=== PATIENT | male | born 1935 | race Caucasian/White ===

== ENCOUNTER 2019-09-28 05:38 | Inpatient (IN) | payer MEDICARE, OTHER ==
[2019-09-22 13:07] LABS: BASOPHILS % (AUTO) 0.7 % (0-1); EOSINOPHILS # (AUTO) 0.1 X10'3 (0-0.9); EOSINOPHILS % (AUTO) 1.4 % (0-6); LYMPHOCYTES # (AUTO) 1.1 X10'3 (1.1-4.8); LYMPHOCYTES % (AUTO) 21.3 % (21-51); MEAN CORPUSCULAR HEMOGLOBIN 32.1 PG (27.0-31.0); MEAN CORPUSCULAR HGB CONC 32.5 g/dL (33.0-36.5); MEAN CORPUSCULAR VOLUME 98.7 FL (78-98); MEAN PLATELET VOLUME 7.9 FL (7.4-10.4); MONOCYTES # (AUTO) 0.6 X10'3 (0-0.9); MONOCYTES % (AUTO) 10.7 % (2-12); NEUTROPHILS # (AUTO) 3.4 X10'3 (1.8-7.7); NEUTROPHILS % (AUTO) 65.9 % (42-75); PRE OP HEMATOCRIT 44.1 % (42.0-52.0); PRE OP HEMOGLOBIN 14.3 g/dL (14.0-17.9); PRE OP PLATELET COUNT 154 X10'3 (140-440); RED BLOOD COUNT 4.46 X10'6 (4.70-6.10); RED CELL DISTRIBUTION WIDTH 14.7 % (11.5-14.5)
[2019-09-22 13:28] LABS: ALBUMIN 3.8 G/DL (3.4-5.0); ALBUMIN/GLOBULIN RATIO 1.1 (1.1-1.5); ALKALINE PHOSPHATASE 91 IU/L (46-116); BLOOD UREA NITROGEN 17 MG/DL (7-18); BUN/CREATININE RATIO 21.5 (5.4-32.0); CALCIUM 8.9 MG/DL (8.5-10.1); CHLORIDE 103 MMOL/L (99-107); CREATININE 0.79 MG/DL (0.60-1.10); PRE OP ALT 30 U/L (30-65); PRE OP ANION GAP 8 (8-16); PRE OP AST 29 U/L (10-37); PRE OP BILIRUB, TOTAL 0.7 MG/DL (0.0-1.0); PRE OP GLUCOSE 98 MG/DL (70-104); PRE OP POTASSIUM 4.1 MMOL/L (3.4-5.1); PRE OP SODIUM 137 MMOL/L (135-145); TOTAL CARBON DIOXIDE 25.8 MMOL/L (24-32); TOTAL PROTEIN 7.4 G/DL (6.4-8.2); eGFR > 90 ML/MIN
[~2019-09-28] VITALS: Ht 165.1 cm; Wt 86.7 kg
[2019-09-28] VITALS (18 sets, daily range): BP systolic 89–166; BP diastolic 44–85
[2019-09-28] MEDS: metoclopramide 5 mg/ml inj IV ONE ×2 (05:30→06:19)
[~2019-09-28 05:38] MED LIST: ASPI-845 PO; ATOR10TA87 PO; CARV-50 PO; CLOP75TA35 PO; DOCUMENT DATE & TIME OF BETA-BLOCKER PO ONE; DONE10TA11 PO; FERR-119 PO; MEGA RED PO; MULT-1179 PO; NIAC500C12 PO; OMEG-143 PO; VITA-268 PO; VITA400C67 PO; acetaminophen 325mg tablet PO ONE; ceFAZolin 2gm in dextrose, iso 50 ML IV ONE; celeCOXIB 100mg capsule PO ONE; famotidine 20mg tablet PO ONE; gabapentin 300mg capsule PO ONE; oxyCODONE SR 10mg (sust. release) tab -2 tabs (20mg) PO ONE; ringers solution, lacted 1,000 ML IV SCH; tranexamic acid inj. 1,000 MG in normal saline 100 ML IV ONE; vancomycin 1,500 MG in NS 500ml IV soln IV ONE
[2019-09-28] MEDS ORDERED: LIDOcaine 1% (10mg/ml) 2ml vial ONE (06:03)
[2019-09-28] MEDS ORDERED: carvedilol 6.25mg tablet PO ONE (06:50)
[2019-09-28] MEDS ORDERED: bisacodyl 10mg suppository rectal RC PRN (07:15)
[2019-09-28] MEDS ORDERED: acetaminophen 325mg tablet PO PRN (07:15)
[2019-09-28] MEDS ORDERED: ondansetron/PF 4mg/2ml inj IV PRN ×2 (07:15→09:25)
[2019-09-28] MEDS ORDERED: HYDROmorphone inj. 0.5 MG/0.5 ML DISP.SYRIN IV PRN (07:15)
[2019-09-28] MEDS ORDERED: diphenhydrAMINE 25mg capsule PO PRN ×2 (07:15)
[2019-09-28] MEDS ORDERED: magnesium hydroxide 30ml (MOM) UD suspension PO PRN (07:15)
[2019-09-28] MEDS ORDERED: cloNIDine hcl/PF 100mcg/ml inj ONE ×2 (07:46→07:56)
[2019-09-28] MEDS ORDERED: epiNEPHrine 1 mg/ml inj ONE (07:46)
[2019-09-28] MEDS ORDERED: ROPIVAcaine 0.5% (5mg/ml) 30ml vial ONE ×3 (07:47→09:58)
[2019-09-28] MEDS ORDERED: vancomycin 1,000mg inj ONE ×2 (07:56→09:09)
[2019-09-28] MEDS ORDERED: ketorolac trometh. 30mg/ml inj. ONE (07:56)
[2019-09-28] MEDS ORDERED: midazolam 2 mg/2 ml injection ONE ×2 (08:06)
[2019-09-28] MEDS ORDERED: fentaNYL/PF 50MCG/1 ML 2ML syringe ONE (08:06)
[2019-09-28] MEDS ORDERED: ePHEDrine 50MG/ML INJ. ONE (08:34)
[2019-09-28] MEDS ORDERED: ringers solution, lacted 1,000 ML IV SCH (09:24)
[2019-09-28] MEDS ORDERED: meperidine/PF 25mg/ml syringe IV PRN ×3 (09:25)
[2019-09-28] MEDS ORDERED: morphine 4 MG/ML inj SYRINge IV PRN (09:25)
[2019-09-28] MEDS ORDERED: morphine 2 MG/ML inj. syringe IV PRN (09:25)
[2019-09-28] MEDS ORDERED: proCHLORperazine 10 MG/2 ml inj IV PRN (09:25)
--- NOTE | 2019-09-28 10:20 | NUR ---
Received from OR via BED , accompanied by Anesthesiologist DR BYNUM and report given by Anesthesiolgist. PATIENT WAKING UP, DENIES PAIN, V/S WNL, NEUROVASCULAR CHECKS INTACT, 18G PIV LUE , EDWAR DRESSING TO LEFT KNEE CDI W/ COLD POWDER PACK AND ON QUE PUMP AT 4ML/HR , SENSATIONS AT T12
--- NOTE | 2019-09-28 11:10 | NUR ---
PATIENT A&OX4, DENIES PAIN, V/S WNL, NEUROVASCULAR CHECKS INTACT, 18G PIV LUE , EDWAR DRESSING TO LEFT KNEE CDI W/ COLD POWDER PACK AND W/ SCD ON. . SENSATION T-12. PATIENT TAKEN TO 4022B WITH ALL BELONGINGS AND HOOKED UP TO MONITORS IN ROOM AND REPORT GIVEN TO MANAGER RN WHO HAS TAKEN OVER PATIENT CARE.
[2019-09-28] MEDS: ROPIVAcaine 0.2%/PF PUMP/bolus 550 ML ADDCANAL SCH (11:26)
--- NOTE | 2019-09-28 12:00 | NUR ---
vic dressing not working, Aida Tiwari was advised, she told me to reinforce it and watch it and hopefully it will start working but if not may change tomorrow.scant amt of drainage showing through dressing. I reinforced dressing still not working, will continue to monitor.
[2019-09-28] MEDS ORDERED: NORMAL SALINE IV ONE (13:30)
[2019-09-28] MEDS ORDERED: TRANEXAMIC ACID IV ONE (13:30)
[2019-09-28] MEDS ORDERED: HYDROmorphone 1 mg/ml syringe IV PRN (14:00)
[2019-09-28] MEDS ORDERED: CEFEPIME 2gm in D5W 50mL 50 ML IV SCH (16:00)
[2019-09-28] MEDS: potassium cl 20mEq in 1/2 NS 1,000 ML IV SCH (16:41)
[2019-09-28] MEDS: ceFAZolin 2gm in dextrose, iso 50 ML IV SCH (16:41)
[2019-09-28] MEDS: oxyCODONE/APAP 5-325mg tablet PO PRN (16:50)
--- NOTE | 2019-09-28 18:32 | NUR ---
Problems reprioritized. Patient report given, questions answered & plan of care reviewed with MELBA Felix.
[2019-09-28] MEDS ORDERED: VANCOMYCIN 1,500MG inj. 1,500 MG in normal saline 500ml IV soln 500 ML IV SCH (20:00)
[2019-09-28] MEDS: sennosides 8.6mg tablet PO SCH (20:47)
[2019-09-28] MEDS: gabapentin 300mg capsule PO SCH (20:47)
[2019-09-28] MEDS: carvedilol 6.25mg tablet PO SCH (20:48)
[2019-09-28] MEDS: ARIPIPRAZOLE 10 MG TABLET PO SCH (20:48)
[2019-09-28] MEDS: ascorbic acid 500mg tablet PO SCH (20:48)
[2019-09-28] MEDS: atorvastatin 10mg tablet PO SCH (20:48)
[2019-09-29 02:00] VITALS: BP 140/71
[2019-09-29] MEDS: ceFAZolin 2gm in dextrose, iso 50 ML IV SCH (02:06)
[2019-09-29] MEDS: potassium cl 20mEq in 1/2 NS 1,000 ML IV SCH ×2 (02:09→11:20)
[2019-09-29] MEDS: ROPIVAcaine 0.2% (10 MG/5 ML) BOLUS INJECTION ADDCANAL PRN ×2 (03:35→21:28)
[2019-09-29] MEDS: ROPIVAcaine 0.2%/PF PUMP/bolus 550 ML ADDCANAL SCH (03:36)
--- NOTE | 2019-09-29 03:37 | NUR ---
at this time the ropivicaine pump was increased to 14ml/hr and one bolus was administered by patient. will continue to monitor for pain control and will decrease if needed.
[2019-09-29] MEDS: oxyCODONE/APAP 5-325mg tablet PO PRN ×3 (04:42→13:32)
[2019-09-29 06:30] VITALS: BP 159/63
--- NOTE | 2019-09-29 06:44 | NUR ---
REPORT GIVEN TO MELBA LAUREANO.
[2019-09-29 06:46] LABS: ANION GAP 8 (8-16); CHLORIDE 104 MMOL/L (99-107); POTASSIUM 4.1 MMOL/L (3.5-5.1); SODIUM 137 MMOL/L (135-145); TOTAL CARBON DIOXIDE 25.1 MMOL/L (24-32)
[2019-09-29 06:53] LABS: BASOPHILS % (AUTO) 0.3 % (0-1); EOSINOPHILS % (AUTO) 0.3 % (0-6); HEMATOCRIT 40.5 % (42.0-52.0); HEMOGLOBIN 13.2 g/dl (14.0-17.9); LYMPHOCYTES # (AUTO) 0.6 X10'3 (1.1-4.8); MEAN CORPUSCULAR HEMOGLOBIN 32.2 PG (27.0-31.0); MEAN CORPUSCULAR HGB CONC 32.5 g/dL (33.0-36.5); MEAN CORPUSCULAR VOLUME 99.1 FL (78-98); MEAN PLATELET VOLUME 7.8 FL (7.4-10.4); MONOCYTES # (AUTO) 0.6 X10'3 (0-0.9); MONOCYTES % (AUTO) 8.5 % (2-12); NEUTROPHILS # (AUTO) 5.8 X10'3 (1.8-7.7); NEUTROPHILS % (AUTO) 82.9 % (42-75); PLATELET COUNT 135 X10'3 (140-440); RED BLOOD COUNT 4.08 X10'6 (4.70-6.10); RED CELL DISTRIBUTION WIDTH 14.7 % (11.5-14.5)
--- NOTE | 2019-09-29 06:55 | NUR ---
Patient in room ORTHO 4022B. I have received report from Elvira REILLY and had the opportunity to ask questions and assume patient care.
--- NOTE | 2019-09-29 08:08 | NUR ---
Problems reprioritized. Patient report given, questions answered & plan of care reviewed with Scarlett REILLY.
--- NOTE | 2019-09-29 08:11 | NUR ---
Patient in room ORTHO 4022. I have received report from Kenyatta REILLY and had the opportunity to ask questions and assume patient care.
[2019-09-29] MEDS: ascorbic acid 500mg tablet PO SCH ×2 (08:24→21:27)
[2019-09-29] MEDS: gabapentin 300mg capsule PO SCH ×3 (08:24→21:27)
[2019-09-29] MEDS: aspirin 325mg tablet PO SCH ×2 (08:24→11:39)
[2019-09-29] MEDS: multivitamins, therapeutics tablet PO SCH (08:24)
[2019-09-29] MEDS: carvedilol 6.25mg tablet PO SCH ×2 (08:25→21:27)
[2019-09-29] MEDS: clopidogrel 75mg tablet PO SCH (08:25)
[2019-09-29] MEDS: ARIPIPRAZOLE 10 MG TABLET PO SCH ×2 (08:25→21:27)
[2019-09-29 10:00] VITALS: BP 134/69
--- NOTE | 2019-09-29 12:40 | NUR ---
Joint replacement consult: Pt seen by SARITA for written/verbal high protein ed w/ RD contact information provided. Unable to wake pt at this time; written ed left at bedside. Addendum: 09/29/19 at [address] Amended: Links added.
[2019-09-29 14:00] VITALS: BP 152/84
[2019-09-29 18:00] VITALS: BP 160/82
--- NOTE | 2019-09-29 18:15 | NUR ---
RECEIVED REPORT FROM CHRISTAL REILLY AND ASSUMED PATIENT CARE
--- NOTE | 2019-09-29 18:15 | NUR ---
Problems reprioritized. Patient report given, questions answered & plan of care reviewed with Adilene REILLY.
[2019-09-29] MEDS: sennosides 8.6mg tablet PO SCH (21:27)
[2019-09-29] MEDS: atorvastatin 10mg tablet PO SCH (21:27)
[2019-09-30] MEDS: potassium cl 20mEq in 1/2 NS 1,000 ML IV SCH ×2 (05:00→18:00)
--- NOTE | 2019-09-30 06:03 | NUR ---
REPORT GIVEN TO CHRISTAL REILLY
[2019-09-30 06:10] VITALS: BP 160/79
[2019-09-30 06:52] LABS: BASOPHILS % (AUTO) 0.2 % (0-1); EOSINOPHILS % (AUTO) 0.2 % (0-6); HEMATOCRIT 39.3 % (42.0-52.0); LYMPHOCYTES # (AUTO) 0.6 X10'3 (1.1-4.8); LYMPHOCYTES % (AUTO) 7.2 % (21-51); MEAN CORPUSCULAR HEMOGLOBIN 32.4 PG (27.0-31.0); MEAN CORPUSCULAR VOLUME 98.4 FL (78-98); MEAN PLATELET VOLUME 7.6 FL (7.4-10.4); MONOCYTES % (AUTO) 11.6 % (2-12); NEUTROPHILS # (AUTO) 6.8 X10'3 (1.8-7.7); NEUTROPHILS % (AUTO) 80.8 % (42-75); PLATELET COUNT 132 X10'3 (140-440); RED CELL DISTRIBUTION WIDTH 15.3 % (11.5-14.5); WHITE BLOOD COUNT 8.4 X10'3 (4.5-11.0)
[2019-09-30] MEDS: oxyCODONE/APAP 5-325mg tablet PO PRN ×2 (06:55→11:25)
[2019-09-30] MEDS: carvedilol 6.25mg tablet PO SCH ×2 (07:59→20:26)
[2019-09-30] MEDS: ARIPIPRAZOLE 10 MG TABLET PO SCH ×2 (08:00→20:26)
[2019-09-30] MEDS: multivitamins, therapeutics tablet PO SCH (08:00)
[2019-09-30] MEDS: gabapentin 300mg capsule PO SCH ×3 (08:00→20:26)
[2019-09-30] MEDS: clopidogrel 75mg tablet PO SCH (08:00)
[2019-09-30] MEDS: ascorbic acid 500mg tablet PO SCH ×2 (08:00→20:26)
[2019-09-30] MEDS ORDERED: ONQPUMP ADDCANAL (09:24)
[2019-09-30] MEDS: ROPIVAcaine 0.2%/PF PUMP/bolus 550 ML ADDCANAL SCH (09:25)
[2019-09-30 10:00] VITALS: BP 150/76
[2019-09-30] MEDS ORDERED: ipratropium/albuterol 3ml nebule NEB PRN (11:50)
[2019-09-30] MEDS: ROPIVAcaine 0.2% (10 MG/5 ML) BOLUS INJECTION ADDCANAL PRN (11:50)
--- NOTE | 2019-09-30 14:39 | NUR ---
Problems reprioritized. Patient report given, questions answered & plan of care reviewed with Celia REILLY.
[2019-09-30 18:00] VITALS: BP 137/75
--- NOTE | 2019-09-30 18:28 | NUR ---
Problems reprioritized. Patient report given, questions answered & plan of care reviewed with Natalia REILLY.
--- NOTE | 2019-09-30 18:33 | NUR ---
Patient in room ORTHO 4022. I have received report from Ludivina REILLY and had the opportunity to ask questions and assume patient care.
[2019-09-30] MEDS: atorvastatin 10mg tablet PO SCH (20:26)
[2019-09-30] MEDS: sennosides 8.6mg tablet PO SCH (20:26)
[2019-09-30 22:00] VITALS: BP 152/78
--- NOTE | 2019-10-01 02:05 | NUR ---
Drainage amount has grown on dressing. Joshua dressing showing green light and no air leaks. Francisco new line on dressing to monitor drainage and placed a medium knee wrap and fresh powder pack. Gatched patients bed, will continue to monitor.
--- NOTE | 2019-10-01 04:51 | NUR ---
No new drainage on vic dressing, will continue to monitor.
[2019-10-01] MEDS: oxyCODONE/APAP 5-325mg tablet PO PRN (04:54)
[2019-10-01 06:00] VITALS: BP 142/73
--- NOTE | 2019-10-01 06:29 | NUR ---
Problems reprioritized. Patient report given, questions answered & plan of care reviewed with Ludivina REILLY.
[2019-10-01 07:08] LABS: BASOPHILS % (AUTO) 0.5 % (0-1); EOSINOPHILS % (AUTO) 0.4 % (0-6); HEMATOCRIT 37.4 % (42.0-52.0); HEMOGLOBIN 12.4 g/dl (14.0-17.9); LYMPHOCYTES # (AUTO) 0.7 X10'3 (1.1-4.8); LYMPHOCYTES % (AUTO) 9.2 % (21-51); MEAN CORPUSCULAR HGB CONC 33.3 g/dL (33.0-36.5); MEAN PLATELET VOLUME 7.6 FL (7.4-10.4); MONOCYTES % (AUTO) 13.1 % (2-12); NEUTROPHILS # (AUTO) 5.9 X10'3 (1.8-7.7); NEUTROPHILS % (AUTO) 76.8 % (42-75); PLATELET COUNT 123 X10'3 (140-440); RED BLOOD COUNT 3.78 X10'6 (4.70-6.10); RED CELL DISTRIBUTION WIDTH 14.7 % (11.5-14.5); WHITE BLOOD COUNT 7.7 X10'3 (4.5-11.0)
[2019-10-01] MEDS: gabapentin 300mg capsule PO SCH ×3 (08:12→19:58)
[2019-10-01] MEDS: ARIPIPRAZOLE 10 MG TABLET PO SCH ×2 (08:12→19:58)
[2019-10-01] MEDS: multivitamins, therapeutics tablet PO SCH (08:12)
[2019-10-01] MEDS: clopidogrel 75mg tablet PO SCH (08:12)
[2019-10-01] MEDS: carvedilol 6.25mg tablet PO SCH ×2 (08:12→20:01)
[2019-10-01] MEDS: ascorbic acid 500mg tablet PO SCH ×2 (08:12→19:58)
--- NOTE | 2019-10-01 09:17 | NUR ---
Problems reprioritized. Patient report given, questions answered & plan of care reviewed with Scarlett REILLY.
--- NOTE | 2019-10-01 09:28 | NUR ---
Patient in room ORTHO 4022. I have received report from Ludivina REILLY and had the opportunity to ask questions and assume patient care.
--- NOTE | 2019-10-01 09:47 | NUR ---
I have reviewed and I agree with assessments documented by Ludivina REILLY
[2019-10-01 10:00] VITALS: BP 131/63
--- NOTE | 2019-10-01 10:02 | NUR ---
I left Message with OR nurse who answered Dr. Ronquillo phone about physical therapy recommending and extra day here and nurse helping with transfers, waiting for call back.
[2019-10-01 14:00] VITALS: BP 144/46
[2019-10-01] MEDS: ROPIVAcaine 0.2%/PF PUMP/bolus 550 ML ADDCANAL SCH (16:31)
[2019-10-01 18:00] VITALS: BP 128/67
--- NOTE | 2019-10-01 18:27 | NUR ---
Problems reprioritized. Patient report given, questions answered & plan of care reviewed with Rani REILLY.
--- NOTE | 2019-10-01 18:30 | NUR ---
Patient in room ORTHO 4022. I have received report from MELBA Pantoja and had the opportunity to ask questions and assume patient care.
[2019-10-01] MEDS: sennosides 8.6mg tablet PO SCH (19:58)
[2019-10-01] MEDS: atorvastatin 10mg tablet PO SCH (19:58)
[2019-10-01 22:00] VITALS: BP 143/74
[2019-10-02 06:00] VITALS: BP 172/82
--- NOTE | 2019-10-02 06:30 | NUR ---
Patient in room ORTHO 4022. I have received report from Rani and had the opportunity to ask questions and assume patient care.
--- NOTE | 2019-10-02 06:31 | NUR ---
Problems reprioritized. Patient report given, questions answered & plan of care reviewed with MELBA Inman.
[2019-10-02] MEDS: clopidogrel 75mg tablet PO SCH (08:15)
[2019-10-02] MEDS: ascorbic acid 500mg tablet PO SCH (08:15)
[2019-10-02] MEDS: gabapentin 300mg capsule PO SCH (08:15)
[2019-10-02] MEDS: carvedilol 6.25mg tablet PO SCH (08:15)
[2019-10-02] MEDS: ARIPIPRAZOLE 10 MG TABLET PO SCH (08:15)
[2019-10-02] MEDS: multivitamins, therapeutics tablet PO SCH (08:15)
--- NOTE | 2019-10-02 09:43 | NUR ---
Reviewed discharge instructions with pt. Pt verbalized understanding. Pt was able to dress himself, is alert, oriented and wishes to go home. Pt was wheeled downstairs to be driven home by his spouse. All of pt's belonging were returned to pt.
--- NOTE | 2019-10-06 13:52 | NUR ---
Case Management DC follow up: spoke to pt spouse, Amanda, via telephone. S/P: [facility] Reports: "it has been interesting" r/t question about how pt is doing. Denies: acute cp, SOB, resp distress, vertigo, syncope,weakness, blurry vision, N/V, NELSON, emergent general pain, abd tenderness/distension, fever. Verbalizes understanding of s/s that warrant 9-11/ER visit for evaluation. Pt spouse relayed that pt fell out of vehicle when arriving home after DC from hospital 10/02/19. Pt was hallucinating, confused. pt spouse called Dr Ronquillo, stated did not seem, too concerned. Pt also stated pt pain medications have not been ordered w/their pharmacy. Told they would try. Still no pain Rx to date 10/06/19. Pt spouse states, pt has not had further hallucinations. but, needs reminding to rest/elevate leg. Pt does not stay down w/leg up to allow ice pack to prove beneficial. Pt had first PT appt Friday10/04/19, but does not do exercises in between. Pt spouse states he is compliant w/hydrating. L knee is red, warm, swollen 3x size of R knee. Pt advised to call Dr Ronquillo office at this time and PCP as well for referral for [facility], pain Rx if Dr Ronquillo office is not able to follow through. Pt agrees if swelling, redness, temp continues to elevate, rtn to ER. Verbalizes understanding of new Rx asa 325mg once daily for 6 weeks and why prescribed, resumes current Rx/taking as ordered, no ase r/t polypharmacy. Acknowledges need to schedule/keep follow up appts w/ PCP/Dr Yg Gardner 10/11/19. Needs met, questions answered at DC, no further questions at this time.
== END 2019-10-02 09:40 | disposition home or self-care (01) | DRG 470 ==
LOC: PAS 05:38 → ORTHO 4S 07:14 → OBSVTOIN 09-29 12:30
PROVIDERS: ADMIT Orthopaedic Surgery; ATTEND Orthopaedic Surgery
PROC: 3E0T3BZ Introduction of Anesthetic Agent into Peripheral Nerves and Plexi, Percutaneous Approach (ICD-10-PCS; 2019-09-28)
PROC: 0SRD069 Replacement of Left Knee Joint with Oxidized Zirconium on Polyethylene Synthetic Substitute, Cemented, Open Approach (ICD-10-PCS; principal; 2019-09-28 08:04)
DX: M17.12 Unilateral primary osteoarthritis, left knee (principal); D62 Acute posthemorrhagic anemia; I25.10 Atherosclerotic heart disease of native coronary artery without angina pectoris; E78.5 Hyperlipidemia, unspecified; K21.9 Gastro-esophageal reflux disease without esophagitis; I10 Essential (primary) hypertension; Z95.1 Presence of aortocoronary bypass graft; Z87.891 Personal history of nicotine dependence; Z95.5 Presence of coronary angioplasty implant and graft; I25.2 Old myocardial infarction
CPT/HCPCS: 36415; 71046; 73560; 80051; 80053; 82948; 85025; 86885; 86900; 86901; 87081; 93005; 94640; 94760; 97110; 97116; 97162; 97530; A4215; A6449; A6454; A7000; C1713; C1776; G0378; J0171; J0735; J1885; J2001; J2250; J2405; J2765; J2795; J3010; J3370; J3480; J7040; J7120

== ENCOUNTER 2024-02-17 05:03 | Emergency (ER) | payer MEDICARE, OTHER ==
[~2024-02-17] VITALS: Ht 165.1 cm; Wt 106.8 kg
[~2024-02-17 05:03] MED LIST changes: -ATOR10TA87 PO; -CLOP75TA35 PO; -DOCUMENT DATE & TIME OF BETA-BLOCKER PO ONE; -FERR-119 PO; -MEGA RED PO; -MULT-1179 PO; -NIAC500C12 PO; -OMEG-143 PO; -VITA-268 PO; -VITA400C67 PO; -acetaminophen 325mg tablet PO ONE; -ceFAZolin 2gm in dextrose, iso 50 ML IV ONE; -celeCOXIB 100mg capsule PO ONE; -famotidine 20mg tablet PO ONE; -gabapentin 300mg capsule PO ONE; -oxyCODONE SR 10mg (sust. release) tab -2 tabs (20mg) PO ONE; -ringers solution, lacted 1,000 ML IV SCH; -tranexamic acid inj. 1,000 MG in normal saline 100 ML IV ONE; -vancomycin 1,500 MG in NS 500ml IV soln IV ONE
[2024-02-17 05:20] VITALS: BP 160/85; PULSE 61; RESP 13; TEMP 97.6; O2SAT 95
[2024-02-17] MEDS: ibuprofen 200mg tablet PO ONE (05:37)
[2024-02-17] MEDS: acetaminophen 325mg tablet PO ONE (05:37)
== END 2024-02-17 05:49 | disposition home or self-care (01) ==
LOC: ER 05:04
DX: S40.011A Contusion of right shoulder, initial encounter (principal); F03.90 Unspecified dementia, unspecified severity, without behavioral disturbance, psychotic disturbance, mood disturbance, and anxiety; I25.10 Atherosclerotic heart disease of native coronary artery without angina pectoris; I50.9 Heart failure, unspecified; Z79.82 Long term (current) use of aspirin; Z79.899 Other long term (current) drug therapy; Z95.1 Presence of aortocoronary bypass graft; W06.XXXA Fall from bed, initial encounter; Y93.89 Activity, other specified; Y92.89 Other specified places as the place of occurrence of the external cause; Y99.8 Other external cause status
CPT/HCPCS: 73030; 93005; 99284

== ENCOUNTER 2024-06-23 08:45 | Inpatient (IN) | payer OTHER, MEDICARE ==
[~2024-06-23] VITALS: Ht 165.1 cm; Wt 97.6 kg
[2024-06-23 08:00] VITALS: BP 115/67; PULSE 65; RESP 22; TEMP 97.7; O2SAT 93
[2024-06-23 09:48] LABS: BASOPHILS # (AUTO) 0.1 X10'3 (0-0.2); BASOPHILS % (AUTO) 0.4 % (0-1); EOSINOPHILS # (AUTO) 0.1 X10'3 (0-0.9); EOSINOPHILS % (AUTO) 0.6 % (0-6); HEMOGLOBIN 11.3 g/dl (14.0-17.9); LYMPHOCYTES # (AUTO) 0.7 X10'3 (1.1-4.8); MEAN CORPUSCULAR HEMOGLOBIN 29.5 PG (27.0-31.0); MEAN CORPUSCULAR HGB CONC 32.2 g/dL (33.0-36.5); MEAN CORPUSCULAR VOLUME 91.7 FL (78-98); MEAN PLATELET VOLUME 7.9 FL (7.4-10.4); MONOCYTES # (AUTO) 0.7 X10'3 (0-0.9); MONOCYTES % (AUTO) 5.6 % (2-12); NEUTROPHILS # (AUTO) 11.5 X10'3 (1.8-7.7); NEUTROPHILS % (AUTO) 88.4 % (42-75); PLATELET COUNT 257 X10'3 (140-440); RED BLOOD COUNT 3.81 X10'6 (4.70-6.10)
[2024-06-23 10:12] LABS: ALANINE AMINOTRANSFERASE 33 U/L (12-78); ALBUMIN 2.1 G/DL (3.4-5.0); ALBUMIN/GLOBULIN RATIO 0.5 (1.1-1.5); ALKALINE PHOSPHATASE 98 IU/L (46-116); ANION GAP 7 (8-16); ASPARTATE AMINO TRANSFERASE 37 U/L (10-37); BILIRUBIN,TOTAL 0.4 MG/DL (0.1-1.0); BLOOD UREA NITROGEN 15 MG/DL (7-18); C-REACTIVE PROTEIN 7.38 MG/DL (0.0-0.5); CALCIUM 8.5 MG/DL (8.5-10.1); CHLORIDE 105 MMOL/L (99-107); CREATININE 0.75 MG/DL (0.60-1.10); GLUCOSE 110 MG/DL (70-104); POTASSIUM 3.3 MMOL/L (3.5-5.1); PRO BRAIN NATRIURETIC PEPTIDE 4774 PG/ML (0-450); SODIUM 138 MMOL/L (135-145); TOTAL CARBON DIOXIDE 25.6 MMOL/L (24-32); TOTAL PROTEIN 6.4 G/DL (6.4-8.2); eCRCL 58 ML/MIN; eGFR > 90 ML/MIN
[2024-06-23 11:23] LABS: BILIRUBIN,URINE NEGATIVE (Neg); CLARITY,URINE CLEAR (Clear); COLOR,URINE YELLOW (Yellow); GLUCOSE, URINE NEGATIVE (Neg); KETONES,URINE NEGATIVE (Neg); LEUKOCYTE ESTERASE ,URINE NEGATIVE (Neg); NITRITES, URINE NEGATIVE (Neg); OCCULT BLOOD,URINE NEGATIVE (Neg); PROTEIN,URINE 30 mg/dl (Neg); UROBILINOGEN,URINE 0.2 E.U/dL (0.2-1.0)
[2024-06-23 11:36] LABS: UA COLLECTION TYPE VOIDED
[2024-06-23 11:44] LABS: RBC,URINE 0-2 /HPF (0-2); WBC,URINE 0-4 /HPF (0-4)
[2024-06-23 11:45] LABS: BACTERIA,URINE FEW /HPF (Neg); CAL OXALATE CRYSTALS 1+ /HPF (NEGATIVE); FINE GRANULAR CAST 0-3 /LPF (NEGATIVE); HYALINE CASTS 0-3 /LPF (NEGATIVE); SQUAMOUS EPITHELIAL CELL,UR FEW /LPF (FEW)
[2024-06-23] MEDS: furosemide 40mg/4ml inj IV ONE (14:10)
[2024-06-23] MEDS ORDERED: ondansetron/PF 4mg/2ml inj IV PRN (15:00)
[2024-06-23] MEDS ORDERED: mag hydrox/Alum hydrox/simeth 30ml oral suspension PO PRN (15:00)
[2024-06-23] MEDS ORDERED: acetaminophen 325mg tablet PO PRN (15:00)
[2024-06-23] MEDS ORDERED: potassium Cl 20 mEq SR tablet PO PRN (15:00)
[2024-06-23] MEDS ORDERED: potassium Cl 40MEQ/1/2NS 520ml 520 ML IV PRN (15:00)
[2024-06-23] MEDS ORDERED: magnesium hydroxide 30ml (MOM) UD suspension PO PRN (15:00)
[2024-06-23] MEDS ORDERED: magnesium Cl slow-release 64mg tablet PO PRN (15:00)
[2024-06-23] MEDS ORDERED: magnesium sulf-water 2g/50mL 50 ML IV PRN (15:00)
[2024-06-23] MEDS ORDERED: magnesium sulf-water 4G/100mL 100 ML IV PRN (15:00)
[2024-06-23] MEDS ORDERED: ATOR10TA PO (19:38)
[2024-06-23] MEDS ORDERED: CLOP-32 PO (19:38)
[2024-06-23] MEDS ORDERED: ASPI-1265 PO (19:40)
[2024-06-23] MEDS: K and/or MAG REPLACEMENT MC SCH (20:00)
[2024-06-23 20:05] VITALS: RESP 22; O2SAT 93
[2024-06-23 22:05] VITALS: BP 157/83; PULSE 79; RESP 20; TEMP 97.8; O2SAT 94
[2024-06-23 22:31] LABS: OCCULT BLOOD STOOL NEGATIVE (Neg)
[2024-06-23] MEDS: CefTRIAXone/D5W-Rocephin 1gm 50 ML IV SCH (23:48)
[2024-06-24] MEDS: carVEDilol 12.5mg tablet PO SCH (00:08)
[2024-06-24] MEDS: docusate sod 100mg capsule PO SCH (00:08)
[2024-06-24] MEDS: potassium Cl 20 mEq SR tablet PO PRN (00:08)
[2024-06-24] MEDS: donepezil 5mg tablet PO SCH (00:09)
[2024-06-24 06:00] VITALS: BP 116/73; PULSE 70; RESP 16; TEMP 97.6; O2SAT 98
[2024-06-24 07:37] LABS: BASOPHILS # (AUTO) 0.1 X10'3 (0-0.2); BASOPHILS % (AUTO) 0.5 % (0-1); EOSINOPHILS # (AUTO) 0.1 X10'3 (0-0.9); EOSINOPHILS % (AUTO) 0.4 % (0-6); HEMATOCRIT 33.6 % (42.0-52.0); HEMOGLOBIN 11.1 g/dl (14.0-17.9); LYMPHOCYTES # (AUTO) 0.8 X10'3 (1.1-4.8); LYMPHOCYTES % (AUTO) 5.7 % (21-51); MEAN CORPUSCULAR VOLUME 90.8 FL (78-98); MEAN PLATELET VOLUME 7.8 FL (7.4-10.4); MONOCYTES # (AUTO) 0.7 X10'3 (0-0.9); MONOCYTES % (AUTO) 5.4 % (2-12); NEUTROPHILS # (AUTO) 11.9 X10'3 (1.8-7.7); PLATELET COUNT 260 X10'3 (140-440); WHITE BLOOD COUNT 13.6 X10'3 (4.5-11.0)
[2024-06-24 07:59] LABS: % IRON SATURATION 5 % (11-46); IRON 11 UG/DL (53-167); TOTAL IRON BINDING CAPACITY 208 UG/DL (259-388)
[2024-06-24] MEDS ORDERED: donepezil 5mg tablet PO SCH (08:00)
[2024-06-24 08:11] LABS: ALANINE AMINOTRANSFERASE 29 U/L (12-78); ALBUMIN 2.2 G/DL (3.4-5.0); ALBUMIN/GLOBULIN RATIO 0.5 (1.1-1.5); ALKALINE PHOSPHATASE 98 IU/L (46-116); ANION GAP 8 (8-16); ASPARTATE AMINO TRANSFERASE 32 U/L (10-37); BILIRUBIN,TOTAL 0.4 MG/DL (0.1-1.0); BLOOD UREA NITROGEN 13 MG/DL (7-18); BUN/CREATININE RATIO 15.9 (10.0-20.0); CALCIUM 8.6 MG/DL (8.5-10.1); CHLORIDE 101 MMOL/L (99-107); CREATININE 0.82 MG/DL (0.60-1.10); FERRITIN 158 NG/ML (26-388); GLUCOSE 103 MG/DL (70-104); MAGNESIUM 1.7 MG/DL (1.5-2.4); POTASSIUM 3.5 MMOL/L (3.5-5.1); PRO BRAIN NATRIURETIC PEPTIDE 3119 PG/ML (0-450); SODIUM 136 MMOL/L (135-145); TOTAL CARBON DIOXIDE 26.8 MMOL/L (24-32); TOTAL PROTEIN 6.6 G/DL (6.4-8.2); eCRCL 53 ML/MIN; eGFR 88 ML/MIN
[2024-06-24 08:29] VITALS: RESP 16; O2SAT 98
[2024-06-24] MEDS: atorvastatin 20mg tablet PO SCH (08:29)
[2024-06-24] MEDS: aspirin 81mg, enteric-coated 1 TAB TABLET.DR PO SCH (08:29)
[2024-06-24] MEDS: enoxaparin 40mg/0.4ml syringe SUBCUT SCH (08:31)
[2024-06-24] MEDS: furosemide 10 MG/1 ML 10ml inj IV SCH (08:37)
[2024-06-24] MEDS: iron dextran complex inj. 25 MG in normal saline 50ml IV soln 100 ML IV ONE (09:52)
[2024-06-24] MEDS: iron dextran complex inj. 25 MG in normal saline 50ml IV soln 49.5 ML IV ONE (09:54)
[2024-06-24 10:45] VITALS: BP 105/62; PULSE 70; RESP 16; TEMP 97.6; O2SAT 92
[2024-06-24 18:00] VITALS: BP 133/72; PULSE 58; RESP 16; TEMP 97.8; O2SAT 93
[2024-06-24 20:00] VITALS: RESP 18; O2SAT 95
[2024-06-24 22:00] VITALS: BP 111/66; PULSE 69; RESP 19; TEMP 97; O2SAT 99
[2024-06-25] VITALS (21 sets, daily range): BP systolic 106–152; BP diastolic 60–82; PULSE 54–79; RESP 15–20; TEMP 97.1–97.9; O2SAT 88–97
[2024-06-25] MEDS ORDERED: ipratropium/albuterol 3ml nebule NEB PRN (02:05)
[2024-06-25] MEDS: ipratropium/albuterol 3ml nebule NEB SCH (02:24)
[2024-06-25 06:49] LABS: BASOPHILS % (AUTO) 0.4 % (0-1); EOSINOPHILS # (AUTO) 0.1 X10'3 (0-0.9); EOSINOPHILS % (AUTO) 0.9 % (0-6); HEMOGLOBIN 10.6 g/dl (14.0-17.9); LYMPHOCYTES # (AUTO) 0.8 X10'3 (1.1-4.8); MEAN CORPUSCULAR VOLUME 90.9 FL (78-98); MEAN PLATELET VOLUME 7.3 FL (7.4-10.4); MONOCYTES # (AUTO) 0.8 X10'3 (0-0.9); MONOCYTES % (AUTO) 6.9 % (2-12); NEUTROPHILS # (AUTO) 9.4 X10'3 (1.8-7.7); NEUTROPHILS % (AUTO) 84.8 % (42-75); PLATELET COUNT 261 X10'3 (140-440); RED BLOOD COUNT 3.52 X10'6 (4.70-6.10); WHITE BLOOD COUNT 11.1 X10'3 (4.5-11.0)
[2024-06-25 07:07] LABS: ALANINE AMINOTRANSFERASE 27 U/L (12-78); ALBUMIN 2.2 G/DL (3.4-5.0); ALBUMIN/GLOBULIN RATIO 0.5 (1.1-1.5); ALKALINE PHOSPHATASE 97 IU/L (46-116); ANION GAP 8 (8-16); ASPARTATE AMINO TRANSFERASE 32 U/L (10-37); BILIRUBIN,TOTAL 0.3 MG/DL (0.1-1.0); BLOOD UREA NITROGEN 19 MG/DL (7-18); BUN/CREATININE RATIO 24.1 (10.0-20.0); CALCIUM 8.7 MG/DL (8.5-10.1); CHLORIDE 101 MMOL/L (99-107); CREATININE 0.79 MG/DL (0.60-1.10); GLUCOSE 97 MG/DL (70-104); MAGNESIUM 1.9 MG/DL (1.5-2.4); POTASSIUM 3.4 MMOL/L (3.5-5.1); PRO BRAIN NATRIURETIC PEPTIDE 617 PG/ML (0-450); SODIUM 137 MMOL/L (135-145); TOTAL CARBON DIOXIDE 27.8 MMOL/L (24-32); TOTAL PROTEIN 6.6 G/DL (6.4-8.2); eCRCL 55 ML/MIN; eGFR > 90 ML/MIN
[2024-06-25] MEDS: iron dextran complex inj. 100 MG in normal saline 100ml IV soln 100 ML IV SCH (10:09)
[2024-06-25] MEDS: HYDROcodone/acetaminophen 5mg/325mg tablet PO PRN (17:50)
[2024-06-26] VITALS (9 sets, daily range): BP systolic 112–123; BP diastolic 59–65; PULSE 58–71; RESP 16–20; TEMP 97.3; O2SAT 91–95
[2024-06-26] MEDS: morphine 2 MG/ML inj. syringe IV PRN (04:04)
[2024-06-26 06:20] LABS: BASOPHILS % (AUTO) 0.3 % (0-1); EOSINOPHILS # (AUTO) 0.1 X10'3 (0-0.9); EOSINOPHILS % (AUTO) 0.5 % (0-6); HEMATOCRIT 34.1 % (42.0-52.0); HEMOGLOBIN 11.1 g/dl (14.0-17.9); LYMPHOCYTES # (AUTO) 0.9 X10'3 (1.1-4.8); LYMPHOCYTES % (AUTO) 6.3 % (21-51); MEAN CORPUSCULAR HEMOGLOBIN 29.6 PG (27.0-31.0); MEAN CORPUSCULAR HGB CONC 32.4 g/dL (33.0-36.5); MEAN CORPUSCULAR VOLUME 91.5 FL (78-98); MEAN PLATELET VOLUME 7.6 FL (7.4-10.4); MONOCYTES # (AUTO) 0.8 X10'3 (0-0.9); MONOCYTES % (AUTO) 6.1 % (2-12); NEUTROPHILS % (AUTO) 86.8 % (42-75); PLATELET COUNT 302 X10'3 (140-440); RED BLOOD COUNT 3.73 X10'6 (4.70-6.10); RED CELL DISTRIBUTION WIDTH 14.8 % (11.5-14.5); WHITE BLOOD COUNT 13.8 X10'3 (4.5-11.0)
[2024-06-26 07:17] LABS: ALANINE AMINOTRANSFERASE 29 U/L (12-78); ALBUMIN 2.4 G/DL (3.4-5.0); ALBUMIN/GLOBULIN RATIO 0.5 (1.1-1.5); ALKALINE PHOSPHATASE 104 IU/L (46-116); ANION GAP 7 (8-16); ASPARTATE AMINO TRANSFERASE 32 U/L (10-37); BILIRUBIN,TOTAL 0.4 MG/DL (0.1-1.0); BLOOD UREA NITROGEN 18 MG/DL (7-18); BUN/CREATININE RATIO 23.1 (10.0-20.0); CALCIUM 8.9 MG/DL (8.5-10.1); CHLORIDE 98 MMOL/L (99-107); CREATININE 0.78 MG/DL (0.60-1.10); GLUCOSE 102 MG/DL (70-104); MAGNESIUM 1.9 MG/DL (1.5-2.4); POTASSIUM 3.6 MMOL/L (3.5-5.1); PRO BRAIN NATRIURETIC PEPTIDE 537 PG/ML (0-450); SODIUM 136 MMOL/L (135-145); TOTAL CARBON DIOXIDE 30.7 MMOL/L (24-32); eCRCL 56 ML/MIN; eGFR > 90 ML/MIN
[2024-06-26] MEDS: furosemide 40mg/4ml inj IV SCH (08:37)
== END 2024-06-26 16:00 | DRG 291 ==
LOC: ER 08:46 → ED HOLD 15:01 → PCU 3S 19:45
PROVIDERS: ADMIT Internal Medicine; ATTEND Internal Medicine
DX: I11.0 Hypertensive heart disease with heart failure (principal); I50.33 Acute on chronic diastolic (congestive) heart failure; R78.81 Bacteremia; D72.829 Elevated white blood cell count, unspecified; I25.10 Atherosclerotic heart disease of native coronary artery without angina pectoris; E78.5 Hyperlipidemia, unspecified; D50.9 Iron deficiency anemia, unspecified; E66.01 Morbid (severe) obesity due to excess calories; F03.90 Unspecified dementia, unspecified severity, without behavioral disturbance, psychotic disturbance, mood disturbance, and anxiety; Z82.49 Family history of ischemic heart disease and other diseases of the circulatory system; Z79.02 Long term (current) use of antithrombotics/antiplatelets; Z83.3 Family history of diabetes mellitus; Z95.1 Presence of aortocoronary bypass graft; Z68.35 Body mass index [BMI] 35.0-35.9, adult
CPT/HCPCS: 36415; 71045; 73620; 80053; 81001; 82272; 82607; 82728; 83540; 83550; 83605; 83735; 83880; 84145; 84484; 85025; 86140; 86885; 86900; 86901; 87040; 87077; 87081; 87186; 93005; 93306; 93971; 94640; 94760; 97116; 97161; 97530; 99285; A4615; A6213; A6590; G0378; J0696; J1650; J1750; J1940; J2270; J3490; J7040